=== PATIENT | male | born 1970 | race Caucasian/White ===

== ENCOUNTER 2017-10-16 08:49 | Emergency (ER) | payer SELFPAY ==
[2017-10-16 10:13] VITALS: BP 0/0
--- NOTE | 2017-10-17 08:12 | ED ---
Nicolasa Bond Gabriel, scribed for Elie Garnett MD on 10/16/17 at 0953 . Abdominal Pain/Male - HPI Summary HPI Summary: This patient is a 46 year old M presenting to [facility] with a chief complaint of a mass in the left portion of his groin that began a few days prior. Patient denies pain. He states he had one when he was younger on the opposite side and it was operated on. - History of Current Complaint Chief Complaint: EDAbdPain Stated Complaint: BUMP ON GROIN AREA Hx Obtained From: Patient Onset/Duration: Lasting Days - 2 Timing: Constant Severity Initially: Mild Severity Currently: Mild Pain Intensity: 0 Pain Scale Used: 0-10 Numeric Location: Suprapubic Radiates: No Associated Signs And Symptoms: Positive: Negative - pain - Allergies/Home Medications Allergies/Adverse Reactions: Allergies Allergy/AdvReac Type Severity Reaction Status Date / Time No Known Allergies Allergy Verified 10/16/17 09:25 PMH/Surg Hx/FS Hx/Imm Hx Endocrine/Hematology History: Denies: Hx Diabetes Respiratory History: Denies: Hx Chronic Obstructive Pulmonary Disease (COPD) GI History: Denies: Hx Diverticulosis History: Reports: Other Problems/Disorders - hernia Denies: Hx Acute Renal Failure, Hx Benign Prostatic Hyperplasia Neurological History: Denies: Hx CVA - Immunization History Date of Tetanus Vaccine: NO Date of Influenza Vaccine: NO Infectious Disease History: No Infectious Disease History: Denies: Traveled Outside the [place] in Last 30 Days - Family History Known Family History: Negative: Hypertension, Renal Disease, Respiratory Disease, Seizure Disorder - Social History Alcohol Use: None Substance Use Type: Reports: Marijuana Smoking Status (MU): Heavy Every Day Tobacco Smoker Review of Systems Negative: Fever Positive: other - mass in left groin Musculoskeletal: Negative - pain All Other Systems Reviewed And Are Negative: Yes Physical Exam - Summary Physical Exam Summary: VITAL SIGNS: Reviewed. GENERAL: Patient is a well-developed and nourished male who is lying comfortable in the stretcher. Patient is not in any acute respiratory distress. HEAD AND FACE: Normocephalic and atraumatic. EYES: PERRLA, EOMI x 2, No injected conjunctiva. EARS: Hearing grossly intact. Ear canals and tympanic membranes are WNL. MOUTH: Oropharynx within normal limits. NECK: Supple, trachea is midline, no adenopathy, no JVD. CHEST: Symmetric, no tenderness at palpation LUNGS: Clear to auscultation bilaterally. No wheezing or crackles. CVS: RRR, S1 and S2 present, no murmurs or gallops appreciated. ABDOMEN: Soft, non-tender. No signs of distention. Positive bowel sounds. No rebound no guarding, and no masses palpated. No abdominal bruit or pulsations. EXTREMITIES: FROM in all major joints, no edema, no cyanosis or clubbing. NEURO: Alert and oriented x 3. No acute neurological deficits. Speech is normal. SKIN: Dry and warm : Left Inguinal hernia, easily reducible, not incarcerated, and not tender Triage Information Reviewed: Yes Vital Signs On Initial Exam: Initial Vitals Temp Pulse Resp BP Pulse Ox 97.6 F 83 18 131/88 98 10/16/17 08:51 10/16/17 08:51 10/16/17 08:51 10/16/17 08:51 10/16/17 08:51 Vital Signs Reviewed: Yes Diagnostics - Vital Signs Vital Signs Temp Pulse Resp BP Pulse Ox 10/16/17 08:51 97.6 F 83 18 131/88 98 - Laboratory Lab Statement: Any lab studies that have been ordered have been reviewed, and results considered in the medical decision making process. Abdominal Pain Fem Course/Dx - Course Assessment/Plan: This patient is a 46 year old M presenting to [facility] with a chief complaint of a mass in the left portion of his groin that began a few days prior. Patient denies pain. He states he had one when he was younger on the opposite side and it was operated on. Patient has an inguinal hernia, therefore he will be discharged and instructed to return if it does not retract , becomes painful, or if he experiences n/v. Patient will be discharged and follow up from Dr. Harris in one week. The patient is agreeable with this plan. - Diagnoses Differential Diagnosis/HQI/PQRI: Constipation, Urinary Tract Infection, Other - Inguinal hernia Provider Diagnoses: Left inguinal hernia Discharge - Discharge Plan Condition: Stable Disposition: HOME Patient Education Materials: Inguinal Hernia (ED) Referrals: No Primary Care Phys,NOPCP [Primary Care Provider] - Elmo Harris MD [Medical Doctor] - 7 Days Additional Instructions: If you experience pain, nausea, or vomiting return to the emergency department. RETURN TO EMERGENCY DEPARTMENT FOR ANY NEW OR WORSENING SYMPTOMS. The documentation as recorded by the Nicolasa monteiro Gabriel accurately reflects the service I personally performed and the decisions made by me, Elie Garnett MD.
== END 2017-10-16 10:12 | disposition home or self-care (01) ==
LOC: ED 08:49
DX: K40.90 Unilateral inguinal hernia, without obstruction or gangrene, not specified as recurrent (principal)
CPT/HCPCS: 99282

== ENCOUNTER → 2017-10-28 09:51 | Day surgery (SDC) | payer SELFPAY ==
[~2017-10-28 09:51] MED LIST: Buffered Lidocaine 0.9% SYRIN* 5 ML/SYR SYRINGE INTRADERM ONE; Buffered Lidocaine 0.9% SYRIN* 5 ML/SYR SYRINGE ONE; Bupivacaine 0.5% SDV PF* 10-30ML VIAL ONE; Lidocaine 1% MPF wEPI 200,000* 30 ML SDV ONE; Lidocaine 2% PF * 5 ML VIAL ONE; Midazolam* 1 MG/ML 2 ML VIAL (2 MG) ONE; Naloxone* 0.4 MG/ML 1 ML VIAL IV PRN; Propofol* 10 MG/ML 20 ML BTL IV PUSH ONE; Sodium Citrate/Citric Acid* 15 ML UDC ONE; Sodium Citrate/Citric Acid* 15 ML UDC PO ONE; ceFAZolin 2 GM PREMIX (*) 2 GM/50 ML BAG IVPB ONE; fentaNYL* 50 MCG/ML 2 ML VIAL (100 MCG VIAL) ONE; oxyCODONE/Acetamin 5/325 MG* TAB PO PRN
[2017-10-28 14:01] VITALS: BP 126/67
--- NOTE | 2017-10-28 23:58 | OP ---
DATE OF OPERATION: 10/28/17 - [facility] DATE OF : 66 SURGEON: Elmo Harris MD TOOL REPAIRER BENCH: ROBI Mcfadden ANESTHESIOLOGIST: Ty Strauss DO ANESTHESIA: Local MAC. PRE-OP DIAGNOSIS: Left inguinal hernia. POST-OP DIAGNOSIS: Left inguinal hernia. OPERATIVE PROCEDURE: Open left inguinal hernia repair with mesh. ESTIMATED BLOOD LOSS: Minimal. IV FLUIDS: 400 mL crystalloids. SPECIMENS: None. DRAINS: None. COMPLICATIONS: None. COUNTS: Instrument, needle, and sponge counts correct. DESCRIPTION OF PROCEDURE: The patient was brought to the operating room and placed on the table supine. Sequential compression devices were placed on both lower extremities. Intravenous sedation were administered. The left groin was prepped and draped in the usual sterile fashion. He received appropriate antibiotics. Time-out was performed. Local anesthetic was infiltrated into the skin and soft tissue for a field block. An oblique incision was created approximately 5 cm long. Subcutaneous tissues were divided with cautery and external oblique aponeurosis was identified. Additional anesthetic was infiltrated. The aponeurosis was opened along the line of its fibers through the superficial ring. The aponeurosis was reflected back upon itself and the ilioinguinal nerve was identified, mobilized and preserved medially. The contents of the inguinal canal were isolated with a quarter-inch Venus drain. An indirect inguinal hernia sac was identified with a sliding component. The sac was opened and there was noted to be sliding portion of sigmoid. The sac was closed by twisting upon itself and suture ligating with 2-0 Polysorb. The sac was then allowed to retract into the peritoneal cavity. The repair was then performed with the ProGrip left-sided mesh. This was cut to an appropriate size and then it was positioned to cover the entire floor of the canal. The cord was allowed to egress through the precut aperture and the lateral portion of the mesh was tucked beneath the external oblique aponeurosis. The ilioinguinal nerve was returned to its anatomic position and then the external oblique aponeurosis was run closed with 2-0 Vicryl. Lv's fascia was closed with 3-0 Vicryl in an interrupted fashion. The skin was closed with 4-0 Monocryl in running subcuticular fashion. Steri- Strips were applied. The patient tolerated the procedure well and was subsequently awakened and transferred to Recovery in stable condition. [id number]/[facility] #: [id number] DARIAN
== END | disposition home or self-care (01) ==
LOC: OR 09:51
PROVIDERS: ATTEND Surgery
DX: K40.90 Unilateral inguinal hernia, without obstruction or gangrene, not specified as recurrent (principal); F17.200 Nicotine dependence, unspecified, uncomplicated; F32.9 Major depressive disorder, single episode, unspecified
CPT/HCPCS: A9270-GY; J0690; J2001; J2250; J2704; J3010